=== PATIENT | female | born 1980 | race Two or more races ===

== ENCOUNTER 2017-02-06 19:16 | Emergency (ER) | payer MEDICARE, MEDICAID ==
[~2017-02-06 19:16] MED LIST: ACETAMINOPHEN500 M1 PO; ALBUTEROL SULF8.5 G1 IH; ALBUTEROL SULF8.5 G1 INH; ALBUTEROL SULF8.5 GM IH; AMOXICILLIN500 M1 PO; ANTACID650 MG PO; ARTIFICIAL TEAR15 M8 OP; ASPIRIN EC81 MG PO; ASPIRIN81 MG PO; ATORVASTATIN CA10 M1 PO; AUGMENTIN 875-11 TAB PO; AZATHIOPRINE50 M1 PO; AZOPT 1% OP; BACTRIM 400-801 EAC1 PO; BACTRIM1 TAB PO; BENADRYL25 M3 PO; BETHANECHOL CHL10 M1 PO; CALCITRIOL0.25 MCG PO; CATAPRES0.1 MG PO; CIPRO500 MG PO; CLONIDINE; CLONIDINE HCL0.1 MG PO; COMBIGAN EYE DRO5 ML OP; COREG CR10 MG PO; COREG12.5 MG PO; COREG25 MG PO; CORTISPORIN EAR10 M2 OT; DELTASONE5 MG PO; EPOGEN; FERROUS SULFAT325 MG PO; FLAGYL500 M1 PO; FUROSEMIDE20 MG PO; FUROSEMIDE40 MG PO; HECORIA1 MG PO; HUMALOG100 U/ML SQ; HUMULIN 70/30 V10 ML; HYDRALAZINE HCL10 MG PO; IRON1 TAB PO; IRON325 M1 PO; JANTOVEN5 M1 PO; LEVAQUIN; LEVAQUIN500 MG PO; LEVEMIR100 U/M SQ; LIPITOR20 M1 PO; LIPITOR20 MG PO; LISINOPRIL10 MG PO; LISINOPRIL5 MG PO; LOMOTIL 2.5-0.1 EACH PO; LOPERAMIDE2 M3 PO; MAGNESIUM OXID400 M1 PO; METOLAZONE5 MG PO; MICRO-K 1010 MEQ PO; MIRALAX255 GM PO; MUCINEX600 M1 PO; MULTI VITAMIN1 EAC1 PO; MULTIVITAMINS1 EAC6 PO; MYCOPHENOLIC A360 M1 PO; MYFORTIC360 MG; NEORAL PO; NEORAL100 M1 PO; NEURONTIN100 MG PO; NEURONTIN300 MG PO; NORVASC5 MG PO; NOVOLIN 70/30 V10 ML SQ; NYSTATIN ORAL SU5 ML PO; OCUFLOX10 ML OP; ORAL BIRTH CONTROL; PANTOPRAZOLE SO40 M3 PO; PERCOCET 5MG/AP1 TA1 PO; PHENERGAN25 MG/SUP1 PR; PRED FORTE5 ML OP; PREDNISONE5 M1 PO; PREDNISONE5 MG PO; PRENATAL1 TAB PO; PREVALITE POWD231 G1 PO; PRILOSEC10 MG PO; PROAIR HFA8.5 GM; PROCRIT10000 U/ML SC; PROCRIT20000 U/ML IM; PROCRIT20000 UNIT SC; PROGRAF1 M1 PO; PROTONIX40 M1 PO; PROTONIX40 MG PO; REGLAN10 M1 PO; REGLAN10 M2 PO; REGLAN10 MG PO; REGLAN5 MG PO; SERTRALINE HCL25 M3 PO; SODIUM BICARBO650 M1 PO; TAB-A-VITE1 EAC1 PO; TACROLIMUS1 M1 PO; TRAVATAN Z5 ML OP; TYLENOL PM EX-1 EAC4 PO; TYLENOL SU650 MG/SUP PR; TYLENOL325 M2 PO; TYLENOL325 MG PO; VALCYTE450 MG PO; VALCYTE450 MG/TAB PO; VICKS NYQUIL PO; VITAMIN D-50000 IU/C PO; VITAMIN D50000 UNIT PO; ZITHROMAX250 MG PO; ZOFRAN ODT4 MG PO; ZOFRAN ODT4 MG/UDTAB PO; ZOFRAN4 M1 PO; ZOLOFT25 M1 PO; [UNRECOGNIZED DRUG - OTHER] OP; [UNRECOGNIZED DRUG - OTHER] PO
[2017-02-06] MEDS ORDERED: LASIX20 M1 PO (19:35)
== END 2017-02-06 21:45 ==
LOC: EDMED 19:16
DX: S96.912A Strain of unspecified muscle and tendon at ankle and foot level, left foot, initial encounter (principal); Z94.83 Pancreas transplant status; Z94.0 Kidney transplant status; X58.XXXA Exposure to other specified factors, initial encounter